=== PATIENT | female | born 1990 | race Caucasian/White ===

== ENCOUNTER 2016-07-28 21:45 | Inpatient (IN) | payer SELFPAY ==
[~2016-07-28] VITALS: Ht 162.6 cm; Wt 79.4 kg
[2016-08-01] MEDS ORDERED: FEROSUL325 MG PO (17:19)
[2016-08-01] MEDS ORDERED: MOTRIN-DPS800 MG PO (17:19)
[2016-08-01] MEDS ORDERED: PERCOCET 5 DPS1 TAB PO (17:19)
[2016-08-01] MEDS ORDERED: COLACE-DPS100 MG PO (17:19)
--- NOTE | 2016-08-29 09:00 | HP ---
ADMIT: 07/28/2016 RM/LOC: 224 [facility] MR#: [id number] [address] [facility] [address] [place], [place] [address] CALL, ALBERT A [address] [facility] [address] [place] [address] Pre-OP History and Physical SEX: F AGE: 25 : 1990 DATE OF SERVICE: REASON FOR ADMISSION: Contractions. HISTORY OF PRESENT ILLNESS: The patient is a 25-year-old 4, para 3-0- 0-3, who presented to Labor and Delivery at 38 and 2/7th weeks' gestation by her stated estimated date of confinement from the patient reported ultrasound dates. The patient has had no care in this , but stated that she visited a free clinic in [place] when she was approximately 20 weeks' gestation, which gave her that estimated date of confinement. The patient's has been complicated by no care as well as history of previous section x3. At time of admission, the patient complains of contractions. She denies any vaginal bleeding or loss of fluid. LABORATORY DATA: Not available. PAST MEDICAL HISTORY: Noncontributory. PAST SURGICAL HISTORY: section x3. CURRENT MEDICATIONS: vitamins daily. ALLERGIES: NO KNOWN MEDICAL ALLERGIES. FAMILY HISTORY: Grandmother and grandfather with diabetes. SOCIAL HISTORY: The patient is single. She stated she smokes 5 cigarettes per day and used marijuana earlier in the , but denies current drug use and denies any alcohol use. PHYSICAL EXAMINATION: VITAL SIGNS: On admission; vital signs are stable. The patient is afebrile. GENERAL: The patient is alert and oriented, in no acute distress. HEART: Regular rate and rhythm without murmurs, gallops, or rubs. LUNGS: Clear to auscultation bilaterally. ABDOMEN: Soft, nontender, gravid. EXTREMITIES: No edema. No calf tenderness. heart tones are in the 130s with moderate variability and accelerations present. Contractions are every 5 minutes. Cervix 3 cm dilated, 100% effaced, and 0 station. The patient is visibly uncomfortable with contractions. ASSESSMENT AND PLAN: ADMIT: 07/28/2016 RM/LOC: 224 [facility] MR#: [id number] [address] [facility] [address] [place], [place] [address] JONO, ALBERT Veronica [address] [facility] [address] [facility] [address] [place] [address] Pre-OP History and Physical SEX: F AGE: 25 : 1990 1. A 25-year-old 4, para 3-0-0-3 at 38 and 2/7th weeks' gestation by stated estimated date of confinement. 2. History of previous section x3. 3. No care. 4. Tobacco use in . 5. Drug use in . PLAN: Plan to proceed with repeat low transverse section. Risks, benefits, and alternatives of surgery including, but not limited to the risk of bleeding, possibly requiring blood transfusion, the risk of infection, the risk of injury to bowel or bladder have been discussed with the patient, and she agrees to proceed. Clara Cary MD/ dorys JOB #: [id number] CC: Clara Cary MD, Attending Physician Clara Cary MD, Family Physician
--- NOTE | 2016-08-29 09:00 | OR ---
ADMIT: 07/28/2016 RM/LOC: 224 [facility] MR#: [id number] [address] [facility] [address] [place], [place] [address] CALL, ALBERT Veronica [address] [facility] [address] [place] [address] Operative/Delivery Room Report SEX: F AGE: 25 : 1990 SURGERY DATE: 07/28/2016 SURGEON: Clara Cary MD NAME OF PROCEDURE: Repeat low transverse section. [facility] SPECIALIST: Jenna Barakat MD Resident. PREOPERATIVE DIAGNOSES: 1. Intrauterine at 38 and 2/7th weeks' gestation. 2. Previous section x3. 3. No care. 4. Tobacco use in . 5. History of drug use in . POSTOPERATIVE DIAGNOSES: 1. Intrauterine at 38 and 2/7th weeks' gestation. 2. Previous section x3. 3. No care. 4. Tobacco use in . 5. History of drug use in . FINDINGS: 1. Liveborn male , scores of 7 at 1 minute, 9 at 5 minutes. Weight 6 pounds 13 ounces. 2. Normal-appearing uterus, tubes, and ovaries bilaterally. ESTIMATED BLOOD LOSS: 1000 mL. ANESTHESIA: Spinal. COMPLICATIONS: None. INDICATIONS FOR PROCEDURE: The patient is a 25-year-old 4, para 3-0-0- 3, who presented to Labor and Delivery at 38 and 2/7th weeks' gestation by stated estimated date of confinement, which she states was based on 20-week ultrasound at a [facility] in [place]. The patient's has been complicated by history of previous section x3, no care, tobacco use in , and history of drug use in . At time of admission, the patient was noted be contract rosa maria regularly and painfully and was noted be 3 cm dilated, 100% effaced, and so decision made to proceed with repeat section. The risks, benefits, and alternatives of surgery including, but not limited to risk of bleeding, possibly requiring a blood transfusion, risk of infection, and the risk of injury to bowel or bladder were discussed with the patient, and she agreed to proceed. DESCRIPTION OF PROCEDURE: The patient was taken to the operating room where spinal anesthesia was obtained without difficulty. The patient was placed in dorsal supine position in leftward tilt and prepped and draped in usual ADMIT: 07/28/2016 RM/LOC: 224 [facility] MR#: [id number] [address] [facility] [address] [place], [place] [address] ALBERT DE LA CRUZ [address] [address] Operative/Delivery Room Report SEX: F AGE: 25 : 1990 sterile fashion. A Pfannenstiel skin incision was made with a scalpel and was carried through to the underlying layer of fascia. The fascia was nicked in the midline and this incision was extended bilaterally using Graham scissors. The superior aspect of the fascial incision was grasped with Judy clamps, elevated, and underlying rectus muscles were dissected off with Graham scissors. In a similar fashion, the inferior aspect of the fascial incision was grasped with Judy clamps, elevated, and underlying rectus muscles were dissected off with Graham scissors. The perineum was entered bluntly, and this incision was extended bluntly as well. The bladder blade was then placed. The lower uterine segment was noted to be quite thin. Vesicouterine peritoneum was identified and entered sharply with Metzenbaum scissors. This incision was extended bilaterally, and a bladder flap was created digitally. The uterus was then incised using a scalpel. This incision was extended bluntly. The infant's vertex was grasped and delivered through the uterine incision. Clear fluid was noted at time of the amniotomy. The infant's vertex was grasped and delivered through the uterine incision. The remainder of the delivered without difficulty as well. Uterus was exteriorized and cleared of all clots and debris. The uterine incision was closed in a running locked fashion using 0 Vicryl. The uterine incision was then noted to be hemostatic. The uterus was replaced into the abdominal cavity. The gutters were checked and cleared of all clots and debris. The uterine incision was again examined. There was an area in the midline of the incision, which was made hemostatic with a figure- of-eight stitch of 0 Vicryl. The muscles and fascia were examined and made hemostatic with electrocautery. The fascial incision was then closed in a running fashion using 0 Vicryl. Subcutaneous layer was brought together using interrupted 2-0 plain gut and the skin incision was closed with subcuticular stapler. The patient tolerated the procedure well. All sponge and needle counts were correct. The patient and recovered in the room in stable condition. EDIT: 08/01/2016 0643 njv Clara Cary MD/ dorys JOB #: [id number] CC: Clara Cary MD, Attending Physician Clara Cary MD, Family Physician
--- NOTE | 2016-09-12 09:19 | DS ---
ADMIT: 07/28/2016 RM/LOC: 224 [facility] MR#: [id number] [address] [facility] [address] [place], [place] [address] JONO OLEGNeil Glenys [address] [place] [address] General Discharge Summary SEX: F AGE: 25 : 1990 ADMISSION DATE: 07/28/2016 DISCHARGE DATE: 07/31/2016 ADMISSION DIAGNOSES: 1. Intrauterine at 38-2/7th weeks' gestation. 2. No care. 3. Previous section x3. 4. Active labor. DISCHARGE DIAGNOSES: 1. Intrauterine at 38-2/7th weeks' gestation. 2. No care. 3. Previous section x3. 4. Active labor. PROCEDURES PERFORMED: Repeat low transverse section performed on 07/28/2016, with delivery of a liveborn male infant; scores of 7 at 1 minute, 9 at 5 minutes; weight 6 pounds 13 ounces. HOSPITAL COURSE: The patient underwent the above-named procedure on 07/28/2016. Postoperatively, the patient did well. On postoperative day #1, the patient's pain was controlled. Drug screen did return as positive for methamphetamines, and so a Social Work consult was ordered. Postoperative hemoglobin was noted to be 8.4. The patient was started on iron sulfate. The patient also had an alcohol and drug treatment center consult. At which time, she declined to go into drug treatment. On postoperative day #3, the patient was deemed stable for discharge, urine output was normal, she was ambulating and voiding without difficulty. DISCHARGE INSTRUCTIONS: The patient is to be discharged to home. She is to continue Colace twice daily. Feosol twice daily. Motrin and Percocet as needed for pain control. She is to follow up in the clinic in 2 weeks for an incision check and in 6 weeks for a check. FINAL DISPOSITION: The patient is to go home. CONDITION ON DISCHARGE: Stable. Clara Cary MD/ dorys JOB #: [id number] CC: Clara Cary MD, Attending Physician Clara Cary MD, Family Physician
== END 2016-07-31 13:25 | disposition home or self-care (01) | DRG 765 ==
LOC: 2LDRP 21:45 → BC 21:45 → 2LDRP 22:15
PROVIDERS: ADMIT Obstetrics & Gynecology
PROC: 10D00Z1 Extraction of Products of Conception, Low, Open Approach (ICD-10-PCS; principal; 2016-07-28)
DX: O34.211 Maternal care for low transverse scar from previous cesarean delivery (principal); O99.324 Drug use complicating childbirth; O99.334 Smoking (tobacco) complicating childbirth; F17.210 Nicotine dependence, cigarettes, uncomplicated; F15.10 Other stimulant abuse, uncomplicated; O99.02 Anemia complicating childbirth; D64.9 Anemia, unspecified; Z3A.38 38 weeks gestation of pregnancy; Z37.0 Single live birth